=== PATIENT | female | born 1965 | race Caucasian/White ===

== ENCOUNTER 2017-04-06 15:55 | Emergency (ER) | payer OTHER ==
[2017-04-06 16:05] VITALS: BP 115/62
--- NOTE | 2017-04-06 16:23 | UC ---
Skin Complaint HPI - HPI Summary HPI Summary: Noticed thumb hurt on saturday. Progressively more painful and swollen and feeling infected. - History of Current Complaint Chief Complaint: UCGeneralIllness Time Seen by Provider: 04/06/17 16:14 Stated Complaint: RIGHT THUMB WOUND Hx Obtained From: Patient Hx Last Menstrual Period: 10 years ago. ?: No Onset/Duration: Sudden Onset, Lasting Days - 3, Worse Since - onset Timing: Constant Onset Severity: Mild Current Severity: Moderate Location: Hand (Right) - thumb on the radial side. Character: Swelling, Redness, Painful - with small open wound Aggravating Factor(s): Touch Alleviating Factor(s): Nothing Associated Signs & Symptoms: Positive: Chills, Tenderness. Negative: Weakness, Throat Tightening, Rash, Abdominal Pain Related History: Trauma - doesn't recall any trauma. - Allergy/Home Medications Allergies/Adverse Reactions: Allergies Allergy/AdvReac Type Severity Reaction Status Date / Time No Known Allergies Allergy Verified 04/06/17 15:59 Review of Systems Constitutional: Chills Is Patient Immunocompromised?: No All Other Systems Reviewed And Are Negative: Yes PMH/Surg Hx/FS Hx/Imm Hx Previously Healthy: Yes Other History Of: Negative For: HIV, Hepatitis B, Hepatitis C, Anticoagulant Therapy - Surgical History Surgical History: Yes Surgery Procedure, Year, and Place: TOE NAIL AVULSION. RIGHT SHOULDER ATHROSCOPY - Family History Known Family History: Positive: Diabetes Negative: Cardiac Disease, Hypertension - Social History Occupation: Employed Full-time Lives: Alone Alcohol Use: Occasionally Alcohol Amount: WINE WITH DINNER Substance Use Type: None Smoking Status (MU): Light Every Day Tobacco Smoker Type: Cigarettes Amount Used/How Often: 3-5 cig/day Length of Time of Smoking/Using Tobacco: 36 Years Have You Smoked in the Last Year: Yes Cessation Counseling: Patient Advised to Stop - Immunization History Most Recent Influenza Vaccination: no Most Recent Tetanus Shot: 02/18/16 Physical Exam Triage Information Reviewed: Yes Appearance: Well-Appearing, No Pain Distress, Well-Nourished Vital Signs: Initial Vital Signs Temp 97.6 F 04/06/17 15:59 Pulse 64 04/06/17 15:59 Resp 16 04/06/17 15:59 BP 115/62 04/06/17 15:59 Pulse Ox 100 04/06/17 15:59 Vital Signs Reviewed: Yes Eyes: Positive: Conjunctiva Clear Neck exam: Normal Respiratory Exam: Normal Cardiovascular Exam: Normal Musculoskeletal Exam: Normal Neurological Exam: Normal Psychological Exam: Normal Skin: Positive: Other - open wound, skin split distal right thumb, with tenderness and swelling. Course/Dx - Differential Diagnoses - Skin Complaint Differential Diagnoses: Abscess, Cellulitis, Foreign Body - Diagnoses Provider Diagnoses: Open wound right thumb. Cellulitis right thumb Discharge - Discharge Plan Condition: Stable Disposition: HOME Prescriptions: Cephalexin CAP* [Keflex 500 CAP*] 500 mg PO QID #28 cap Fluconazole [Fluconazole 150 mg tab] 150 mg PO ONCE #1 tab Patient Education Materials: Cephalexin (By mouth), Fluconazole (By mouth) Referrals: Mercy Duncan NP [Primary Care Provider] - Additional Instructions: Smoking Cessation Tricks. 1. Cut down by 1 cigarette per day every 2-3 days. Write the number of smokes for that day on the calendar. 2. Identify triggers to smoking: after meals, on the phone, in the car, with coffee, on breaks at work, etc. 3. Formulate a plan with a behavior to replace the smoking. Fireballs in the car , doodle pad on the phone, flavored creamer for the coffee, go for a walk after a meal or on break at work. 4. For stress smokes do deep breathing relaxation. Breath deep in through the nose hold the breath in for a few seconds then breath out slowly through the mouth.
== END 2017-04-06 16:35 | disposition home or self-care (01) ==
LOC: UCCORT 15:55
DX: S61.001A Unspecified open wound of right thumb without damage to nail, initial encounter (principal); L03.011 Cellulitis of right finger; X58.XXXA Exposure to other specified factors, initial encounter; Y93.9 Activity, unspecified; Y92.9 Unspecified place or not applicable; Y99.9 Unspecified external cause status; F17.210 Nicotine dependence, cigarettes, uncomplicated
CPT/HCPCS: 99212; G0463

== ENCOUNTER 2018-01-11 16:06 | Emergency (ER) | payer OTHER ==
[2018-01-11 16:55] VITALS: BP 112/67
--- NOTE | 2018-01-11 17:26 | UC ---
Ear Complaint HPI - HPI Summary HPI Summary: Pt c/o sudden onset of right ear pain pt states "I get swimmers ear all the time ". Pt denies swimming recently or frequently. - History of Current Complaint Chief Complaint: UCEar Stated Complaint: LEFT EAR CONCERN Time Seen by Provider: 01/11/18 17:12 Hx Obtained From: Patient Hx Last Menstrual Period: 10 years ago. ?: No Onset/Duration: Sudden Onset, Lasting Days, Still Present Severity Initially: Mild Severity Currently: Moderate Pain Intensity: 7 Alleviating Factors: Nothing Associated Signs/Symptoms: Positive: Swelling @ - left outer pinna - Allergies/Home Medications Allergies/Adverse Reactions: Allergies Allergy/AdvReac Type Severity Reaction Status Date / Time No Known Allergies Allergy Verified 01/11/18 16:56 PMH/Surg Hx/FS Hx/Imm Hx Previously Healthy: Yes Other History Of: Negative For: HIV, Hepatitis B, Hepatitis C, Anticoagulant Therapy - Surgical History Surgical History: Yes Surgery Procedure, Year, and Place: TOE NAIL AVULSION. RIGHT SHOULDER ATHROSCOPY - Family History Known Family History: Positive: Diabetes Negative: Cardiac Disease, Hypertension - Social History Occupation: Employed Full-time Lives: With Family Alcohol Use: Occasionally Alcohol Amount: WINE WITH DINNER Substance Use Type: None Smoking Status (MU): Light Every Day Tobacco Smoker Type: Cigarettes Amount Used/How Often: 3-5 cig/day Length of Time of Smoking/Using Tobacco: 36 Years Have You Smoked in the Last Year: Yes - Immunization History Most Recent Influenza Vaccination: no Most Recent Tetanus Shot: 02/18/16 Vaccination Up to Date: No Review of Systems Constitutional: Negative Skin: Negative Eyes: Negative ENT: Ear Ache - left Respiratory: Negative Cardiovascular: Negative Gastrointestinal: Negative Genitourinary: Negative Motor: Negative Neurovascular: Negative Musculoskeletal: Negative Neurological: Negative Psychological: Negative Is Patient Immunocompromised?: No All Other Systems Reviewed And Are Negative: Yes Physical Exam Triage Information Reviewed: Yes Appearance: Well-Appearing Vital Signs: Initial Vital Signs Temp 99.1 F 01/11/18 16:50 Pulse 76 01/11/18 16:50 Resp 16 01/11/18 16:50 BP 112/67 01/11/18 16:50 Pulse Ox 100 01/11/18 16:50 Vital Signs Reviewed: Yes Eye Exam: Normal ENT: Positive: Other - left outer ear canal erythematous, with purulent discharge. Dental Exam: Normal Neck exam: Normal Respiratory Exam: Normal Respiratory: Positive: No respiratory distress Musculoskeletal Exam: Normal Neurological Exam: Normal Psychological Exam: Normal Skin Exam: Normal Ear Complaint Course/Dx - Differential Dx/Diagnosis Differential Diagnosis/HQI/PQRI: Otitis Externa, Otitis Media Provider Diagnoses: otitis externa left Discharge - Sign-Out/Discharge Documenting (check all that apply): Patient Departure All imaging exams completed and their final reports reviewed: No Studies - Discharge Plan Condition: Stable Disposition: HOME Prescriptions: Neomyc/Polym/HC 1% OTIC SUSP* [Cortisporin Otic Susp 1%*] 2 drop LEFT EAR Q12H 7 Days #1 btl Patient Education Materials: Otitis Externa (ED) Referrals: Kandice Leblanc MD [Primary Care Provider] - If Needed - Billing Disposition and Condition Condition: STABLE Disposition: Home
== END 2018-01-11 17:38 | disposition home or self-care (01) ==
LOC: UCCORT 16:06
DX: H60.92 Unspecified otitis externa, left ear (principal); F17.210 Nicotine dependence, cigarettes, uncomplicated
CPT/HCPCS: 99212; G0463

== ENCOUNTER 2018-04-16 13:13 | Emergency (ER) | payer OTHER ==
--- OUTSIDE RECORDS SUMMARY | 2018-04-16 13:28 | XMS REPORT | Continuity of Care Document ---
:1965 External Reference #:[id number] Author Name Fransisca Harmon Care Team Providers Name Role Phone Kandice Leblanc M.D. Primary Care Physician Unavailable Payers Type Date Identification Numbers Payment Provider Subscriber Effective: Policy Number: [id number] Vikram Calhoun 2016 Group Name: [id number] [address] PayID: [id number] [place] [address] Advance Directives Description No Information Available Problems Date Description Provider Status Onset: 10/22/2017 Lateral epicondylitis Alonso Willingham MD Active Family History Date Family Member(s) Problem(s) Comments General Diabetes Social History Type Date Description Comments Sex Unknown Lives With Alone ETOH Use Rarely consumes alcohol Tobacco Use Start: Unknown Light tobacco smoker (10 or fewer cigarettes/day) Smoking Status Reviewed: 03/28/18 Light tobacco smoker (10 or fewer cigarettes/day) Exercise Type/Frequency Exercises regularly Allergies, Adverse Reactions, Alerts Description No Known Drug Allergies Medications Medication Date Status Form Strength Qnty SIG Indications Ordering Provider Amitriptyline 0 Active Tablets 25mg 1 by Unknown HCL 000 mouth every night at bedtime Cephalexin Hx Capsules 500mg 40caps Take 1 Alonso Russell - every 6 MD Tarsha hours as 018 needed Medications Administered in Office Medication Date Status Form Strength Qnty SIG Indications Ordering Provider Celestone 3 mg Administered Injection Kaiden M and 3mg 018 MD Julia Depomedrol Administered Injection Kaiden M 40MG 016 MD Julia Immunizations Description No Information Available Vital Signs Date Vital Result Comment 03/28/2018 8:24am Height 66 inches 5'6" Weight 126.00 lb BP Systolic 118 mmHg BP Diastolic 70 mmHg Pain Level 5 hip pain BMI (Body Mass Index) 20.3 kg/m2 02/03/2018 2:02pm Height 66 inches 5'6" Weight 125.00 lb BP Systolic 118 mmHg BP Diastolic 76 mmHg BMI (Body Mass Index) 20.2 kg/m2 10/22/2017 10:08am Height 66 inches 5'6" Weight 122.00 lb Heart Rate 95 /min BP Systolic Sitting 114 mmHg BP Diastolic Sitting 66 mmHg Respiratory Rate 20 /min Pain Level 7 BMI (Body Mass Index) 19.7 kg/m2 10/01/2017 8:08am Height 66 inches 5'6" Weight 120.00 lb Heart Rate 76 /min BP Systolic Sitting 120 mmHg BP Diastolic Sitting 76 mmHg Respiratory Rate 16 /min Pain Level 0 BMI (Body Mass Index) 19.4 kg/m2 09/03/2017 8:04am Height 66 inches 5'6" Weight 120.00 lb Heart Rate 84 /min BP Systolic Sitting 106 mmHg BP Diastolic Sitting 64 mmHg Respiratory Rate 18 /min Pain Level 0 BMI (Body Mass Index) 19.4 kg/m2 06/18/2017 8:05am Height 66 inches 5'6" Weight 123.00 lb Heart Rate 90 /min BP Systolic Sitting 108 mmHg BP Diastolic Sitting 60 mmHg Respiratory Rate 16 /min Pain Level 6 BMI (Body Mass Index) 19.9 kg/m2 04/09/2016 10:04am Height 66 inches 5'6" Weight 120.00 lb BP Systolic 126 mmHg BP Diastolic 72 mmHg BMI (Body Mass Index) 19.4 kg/m2 03/27/2016 8:17am Height 66 inches 5'6" Weight 120.00 lb Heart Rate 71 /min BP Systolic 100 mmHg BP Diastolic 62 mmHg BMI (Body Mass Index) 19.4 kg/m2 Results Description No Information Available Procedures Date Code Description Status 03/28/2018 Inject/Drain Joint/Bursa Major W/O US Completed 02/03/2018 20582 Rad Exam; Foot Comp Completed 06/18/2017 39491 Rad Exam; Fingers Completed 04/09/201627958 Inject/Drain Joint/Bursa Major W/O US Completed Encounters Type Date Location Provider Dx Diagnosis Office Visit 02/03/2018 [facility] Kaiden Dumont, S93.602A Unspecified sprain 2:00p [facility] of left foot, AT [place] initial encounter Office Visit 10/22/2017 Orthopedic Alonso Willingham M77.11 Lateral 9:30a [facility] epicondylitis, AT [place] right elbow Office Visit 10/01/2017 Orthopedic Lakia [id number] Cellulitis of right 8:00a [facility] finger AT [place] Office Visit 09/03/2017 Orthopedic Lakia [id number] Cellulitis of right 8:00a [facility] finger AT [place] Office Visit 06/18/2017 Orthopedic Lakia [id number] Cellulitis of right 8:00a [facility] finger AT [place] Office Visit 04/09/2016 [facility] Kaiden Dumont M70.61 Trochanteric 10:15a [facility] bursitis, right hip AT [place] Office Visit 03/27/2016 Orthopedic Lakia [id number] Cellulitis of 8:00a [facility] unspecified finger AT [place] L03.011 Cellulitis of right finger Plan of Treatment 03/28/2018 - Kaiden Dumont, [id number] Trochanteric bursitis, right hipFollow up: Follow up: As needed
--- OUTSIDE RECORDS SUMMARY | 2018-04-16 13:28 | XMS REPORT | Continuity of Care Document ---
:1965 External Reference #:[id number] Author Name Fransisca Harmon Care Team Providers Name Role Phone Kandice Leblacn M.D. Primary Care Physician Unavailable Payers Type Date Identification Numbers Payment Provider Subscriber Effective: Policy Number: [id number] Vikram Calhoun 2016 Group Name: [id number] [address] PayID: [id number] [place] [address] Advance Directives Description No Information Available Problems [...] Inject/Drain Joint/Bursa Major W/O US Completed 02/03/2018 01251 Rad Exam; Foot Comp Completed 06/18/2017 57442 Rad Exam; Fingers Completed 04/09/201695219 Inject/Drain Joint/Bursa Major W/O US Completed Encounters Type Date Location Provider Dx Diagnosis Office Visit 02/03/2018 [facility] Kaiden Dumont, S93.602A Unspecified sprain 2:00p [facility] of left foot, AT [place] initial encounter Office Visit 10/22/2017 Orthopedic Alonso Willingham M77.11 Lateral 9:30a [facility] epicondylitis, AT [place] right elbow Office Visit 10/01/2017 Orthopedic Lakia [id number] Cellulitis of right 8:00a [facility] finger AT [place] Office Visit 09/03/2017 Orthopedic Lakia [id number] Cellulitis of right 8:00a [facility] finger AT [place] Office Visit 06/18/2017 Orthopedic Lakia [id number] Cellulitis of right 8:00a [facility] finger AT [place] Office Visit 04/09/2016 Orthopedic Kaiden Dumont M70.61 Trochanteric 10:15a [facility] bursitis, right hip AT [place] Office Visit 03/27/2016 Orthopedic Lakia [id number] Cellulitis of 8:00a [facility] unspecified finger AT [place] L03.011 Cellulitis of right finger Plan of Treatment 03/28/2018 - Kaiden Dumont, [id number] Trochanteric bursitis, right hipFollow up: Follow up: As needed
[2018-04-16 14:29] VITALS: BP 99/64
--- NOTE | 2018-04-16 15:51 | UC ---
Ear Complaint HPI - HPI Summary HPI Summary: 53-year-old female presents with 2 week history of right ear discomfort. Associated with some mild nasal congestion, clear nasal drainage and mild sore throat. Denies fever, chills, ear drainage, hearing loss, tinnitus, dizziness, vertigo, cough, shortness of breath, chest pain, abdominal pain, nausea, or vomiting. - History of Current Complaint Chief Complaint: UCEar Stated Complaint: EAR PAIN Time Seen by Provider: 04/16/18 15:28 Hx Obtained From: Patient Hx Last Menstrual Period: 10 years ago. Pain Intensity: 5 - Allergies/Home Medications Allergies/Adverse Reactions: Allergies Allergy/AdvReac Type Severity Reaction Status Date / Time No Known Allergies Allergy Verified 04/16/18 14:25 PMH/Surg Hx/FS Hx/Imm Hx Previously Healthy: Yes - Denies significant PMH Psychological History: Depression Other History Of: Negative For: HIV, Hepatitis B, Hepatitis C, Anticoagulant Therapy - Surgical History Surgical History: Yes Surgery Procedure, Year, and Place: TOE NAIL AVULSION. RIGHT SHOULDER ATHROSCOPY - Family History Known Family History: Positive: Diabetes Negative: Cardiac Disease, Hypertension - Social History Occupation: Employed Part-time, Works From/At Home Lives: Alone Alcohol Use: Occasionally Alcohol Amount: WINE WITH DINNER Substance Use Type: None Smoking Status (MU): Light Every Day Tobacco Smoker Type: Cigarettes Amount Used/How Often: <1/4 PPD Length of Time of Smoking/Using Tobacco: Since Age 10 Have You Smoked in the Last Year: Yes - Immunization History Most Recent Influenza Vaccination: no Most Recent Tetanus Shot: 02/18/16 Vaccination Up to Date: No Review of Systems All Other Systems Reviewed And Are Negative: Yes Constitutional: Positive: Fever, Fatigue Eyes: Negative: Drainage, Eye Redness ENT: Positive: Ear Ache, Nasal Discharge, Sinus Congestion. Negative: Sinus Pain/Tenderness Respiratory: Negative: Shortness Of Breath, Cough Cardiovascular: Negative: Palpitations, Chest Pain Gastrointestinal: Negative: Abdominal Pain, Vomiting, Diarrhea, Nausea Is Patient Immunocompromised?: No Physical Exam - Summary Physical Exam Summary: GENERAL APPEARANCE: Well developed, well nourished, alert and cooperative, and appears to be in no acute distress. EYES: Conjunctiva clear. No drainage. Vision is grossly intact. EARS: External auditory canals and tympanic membranes clear, hearing grossly intact. NOSE: Mild nasal congestion with mucosal erythema and edema. THROAT: Oral cavity and pharynx normal. No inflammation, swelling, exudate, or lesions. Teeth and gingiva in good general condition. NECK: Neck supple, non-tender without lymphadenopathy. CARDIAC: Normal S1 and S2. No S3, S4 or murmurs. Rhythm is regular. There is no peripheral edema, cyanosis or pallor. Extremities are warm and well perfused. Capillary refill is less than 2 seconds. LUNGS: Clear to auscultation and percussion without rales, rhonchi, wheezing or diminished breath sounds. ABDOMEN: Positive bowel sounds. Soft, nondistended, nontender. No guarding or rebound. No masses or hepatosplenomegally. SKIN: Skin normal color, texture and turgor with no lesions or eruptions. Triage Information Reviewed: Yes Vital Signs: Initial Vital Signs Temp 98.3 F 04/16/18 14:24 Pulse 66 04/16/18 14:24 Resp 16 04/16/18 14:24 BP 99/64 04/16/18 14:24 Pulse Ox 100 04/16/18 14:24 Vital Signs Reviewed: Yes Ear Complaint Course/Dx - Course Course Of Treatment: 53-year-old female presents with 2 week history of right ear discomfort. Associated with some mild nasal congestion, clear nasal drainage and mild sore throat. Denies fever, chills, ear drainage, hearing loss , tinnitus, dizziness, vertigo, cough, shortness of breath, chest pain, abdominal pain, nausea, or vomiting. Afebrile, vital signs stable. Exam was unremarkable. Suspect some eustachian tube dysfunction. Will treat with fluticasone 2 sprays each nostril daily. Patient is to follow-up with a primary care provider in 7 days if symptoms persist. Warning symptoms were reviewed with the patient, Verbalizes understanding and agrees with plan of care. - Differential Dx/Diagnosis Differential Diagnosis/HQI/PQRI: Cerumen Impaction, Otitis Externa, Otitis Media , URI Provider Diagnosis: Eustachian tube dysfunction Discharge - Sign-Out/Discharge Documenting (check all that apply): Patient Departure All imaging exams completed and their final reports reviewed: No Studies - Discharge Plan Condition: Stable Disposition: HOME Prescriptions: Fluticasone NASAL SPRAY 50MCG* [Flonase NASAL SPRAY 50MCG*] 2 spray BOTH NARES DAILY #1 btl Patient Education Materials: Serous Otitis Media (ED) Referrals: Kandice Leblanc MD [Primary Care Provider] - 7 Days (If no imrpovement in symptoms. ) Additional Instructions: There is no evidence of an ear infection on your exam. I suspect year ear discomfort is from a condition called eustachian tube dysfunction. Start fluticasone (Flonase) 2 sprays each nostril once daily. He can try using an cxog-hbn-[id number] decongestant such as Sudafed according to directions to help with some of the nasal congestion. Take [id number]-thfyojm acetaminophen (Tylenol) or ibuprofen (Advil, Motrin) according to directions as needed for any pain. Follow-up with your primary care provider in 7 days if symptoms persist. Seek immediate medical attention if you develop fever greater than 100.5 F, have any drainage or bleeding from the ear, loss of hearing, or any worsening of symptoms. - Billing Disposition and Condition Condition: STABLE Disposition: Home - Attestation Statements Provider Attestation: I was available for consult. This patient was seen by the HESHAM. The patient was not presented to, seen by, or examined by me. -Antonia
== END 2018-04-16 16:03 | disposition home or self-care (01) ==
LOC: UCCORT 13:13
DX: H69.81 Other specified disorders of Eustachian tube, right ear (principal); F17.210 Nicotine dependence, cigarettes, uncomplicated
CPT/HCPCS: 99212; G0463

== ENCOUNTER 2018-09-23 08:35 | Emergency (ER) | payer OTHER ==
[2018-09-23 09:00] VITALS: BP 104/62
--- NOTE | 2018-09-23 09:23 | UC ---
Complaint Female HPI - HPI Summary HPI Summary: bilateral lower back pain and pressure x 4 days pain is 5 out of 10 / dull, constant, no radiation , nothing makes it better or worse + urinary frequency , nu dyuria / + lower abdominal pressure no fever, no chills, no flank pain - History Of Current Complaint Chief Complaint: UCGU Stated Complaint: LOW BACK PAIN Time Seen by Provider: 09/23/18 09:02 Hx Obtained From: Patient Hx Last Menstrual Period: 10 years ago. ?: No Onset/Duration: Gradual Onset, Lasting Days - 4, Still Present Timing: Constant Severity Initially: Moderate Severity Currently: Moderate Pain Intensity: 7 Character: Dull Aggravating Factor(s): Nothing Alleviating Factor(s): Nothing Associated Signs And Symptoms: Positive: Back Pain. Negative: Fever, Vaginal Bleeding/Discharge, Vaginal Discharge, Nausea, Vomiting(# Of Episodes =), Genital Swelling, Genital Blisters, Retained Foregin Body (Specify) - Allergies/Home Medications Allergies/Adverse Reactions: Allergies Allergy/AdvReac Type Severity Reaction Status Date / Time No Known Allergies Allergy Verified 04/16/18 14:25 PMH/Surg Hx/FS Hx/Imm Hx - Additional Past Medical History Additional PMH: UTI kidney infection x1 Other History Of: Negative For: HIV, Hepatitis B, Hepatitis C, Anticoagulant Therapy - Surgical History Surgical History: Yes Surgery Procedure, Year, and Place: TOE NAIL AVULSION. RIGHT SHOULDER ATHROSCOPY - Family History Known Family History: Positive: Diabetes Negative: Cardiac Disease, Hypertension - Social History Alcohol Use: Occasionally Alcohol Amount: WINE WITH DINNER Substance Use Type: None Smoking Status (MU): Light Every Day Tobacco Smoker Type: Cigarettes Amount Used/How Often: <1/4 PPD Length of Time of Smoking/Using Tobacco: Since Age 10 Have You Smoked in the Last Year: Yes - Immunization History Most Recent Influenza Vaccination: no Most Recent Tetanus Shot: 02/18/16 Vaccination Up to Date: No Review of Systems All Other Systems Reviewed And Are Negative: Yes Constitutional: Positive: Negative Skin: Positive: Negative Eyes: Positive: Negative ENT: Positive: Negative Respiratory: Positive: Negative Genitourinary: Positive: Frequency, Urgency. Negative: Dysuria, Vaginal/Penile Burning, Vaginal/Penile Itching Is Patient Immunocompromised?: No Physical Exam Triage Information Reviewed: Yes Appearance: Well-Appearing, No Pain Distress, Well-Nourished Vital Signs: Initial Vital Signs Temp 98.0 F 09/23/18 08:57 Pulse 66 09/23/18 08:57 Resp 16 09/23/18 08:57 BP 104/62 09/23/18 08:57 Pulse Ox 100 09/23/18 08:57 Vital Signs Reviewed: Yes Eye Exam: Normal Eyes: Positive: Conjunctiva Clear ENT: Positive: Normal ENT inspection, Hearing grossly normal, Pharynx normal Neck: Positive: Supple, Nontender, No Lymphadenopathy Respiratory: Positive: Chest non-tender, Lungs clear, Normal breath sounds Cardiovascular: Positive: RRR, No Murmur, Pulses Normal Abdomen Description: Positive: Nontender, Soft. Negative: CVA Tenderness (R), CVA Tenderness (L) Bowel Sounds: Positive: Present Skin Exam: Normal Complaint Female Dx - Differential Dx/Diagnosis Provider Diagnosis: UTI (urinary tract infection) Discharge - Sign-Out/Discharge Documenting (check all that apply): Patient Departure All imaging exams completed and their final reports reviewed: No Studies - Discharge Plan Condition: Stable Disposition: HOME Prescriptions: Fluconazole 150 MG TAB* [Diflucan 150 MG TAB*] 150 mg PO ED ONCE #1 tablet Sulfamethox/Trimethoprim DS* [Bactrim DS 800/160 TAB*] 1 tab PO BID #14 tab Patient Education Materials: Urinary Tract Infection in Women (ED) Referrals: Kandice Leblanc MD [Primary Care Provider] - 7 Days - Billing Disposition and Condition Condition: STABLE Disposition: Home
--- NOTE | 2018-09-25 07:24 | UC ---
- Progress Note Progress Note: Urine culture negative. Please call to advise that she can stop use of the antibiotic. If having persistent urine symptoms, advise follow up with Kandice Leblanc as directed by Dr. Vazquez. Course/Dx - Diagnoses Provider Diagnoses: UTI (urinary tract infection) Discharge - Sign-Out/Discharge Documenting (check all that apply): Patient Departure All imaging exams completed and their final reports reviewed: No Studies - Discharge Plan Condition: Stable Disposition: HOME Prescriptions: Fluconazole 150 MG TAB* [Diflucan 150 MG TAB*] 150 mg PO ED ONCE #1 tablet Sulfamethox/Trimethoprim DS* [Bactrim DS 800/160 TAB*] 1 tab PO BID #14 tab Patient Education Materials: Urinary Tract Infection in Women (ED) Referrals: Kandice Leblanc MD [Primary Care Provider] - 7 Days - Billing Disposition and Condition Condition: STABLE Disposition: Home
== END 2018-09-23 09:22 | disposition home or self-care (01) ==
LOC: UCCORT 08:35
DX: N39.0 Urinary tract infection, site not specified (principal); F17.210 Nicotine dependence, cigarettes, uncomplicated
CPT/HCPCS: 81003; 87086; 99212; G0463

== ENCOUNTER 2019-04-29 16:30 | Emergency (ER) | payer OTHER ==
[2019-04-29 17:05] VITALS: BP 116/56
--- NOTE | 2019-04-29 17:39 | UC ---
Knee Pain HPI - HPI Summary HPI Summary: Pt presents with c/o left knee pain, swelling, burning and feeling of a "boil" in left knee. Pt has new kitten that has scratched her left leg and then was exposed to sewage overflow at work . Pt has been taking cephalexin twice (that she was prescribed in 2017) a day for "several days" and states that pain and swelling has improved since taking antibiotic. Pt think s she has an infection in her knee. - History of Current Complaint Chief Complaint: [facility] Stated Complaint: LEFT KNEE COMPLAINT Time Seen by Provider: 04/29/19 17:17 Hx Obtained From: Patient Hx Last Menstrual Period: 10 years ago. ?: No Onset/Duration: Sudden Onset, Lasting Days, Still Present Severity Initially: Severe Severity Currently: Severe Pain Intensity: 10 Character: Sharp, Stiffness, Burning Aggravating Factor(s): Movement Alleviating Factor(s): Other - cephalexin, neosporin, and hydrogen peroxide. Associated Signs And Symptoms: Positive: Swelling Able to Bear Weight: Yes - Risk Factors Septic Arthritis Risk Factor: Negative Gout Risk Factor: Age ^ 38 - Allergies/Home Medications Allergies/Adverse Reactions: Allergies Allergy/AdvReac Type Severity Reaction Status Date / Time No Known Allergies Allergy Verified 04/29/19 17:05 PMH/Surg Hx/FS Hx/Imm Hx Previously Healthy: Yes Other History Of: Negative For: HIV, Hepatitis B, Hepatitis C, Anticoagulant Therapy - Surgical History Surgical History: Yes Surgery Procedure, Year, and Place: TOE NAIL AVULSION. RIGHT SHOULDER ATHROSCOPY - Family History Known Family History: Positive: Diabetes Negative: Cardiac Disease, Hypertension - Social History Occupation: Employed Full-time Lives: With Family Alcohol Use: Occasionally Alcohol Amount: WINE WITH DINNER Substance Use Type: None Smoking Status (MU): Light Every Day Tobacco Smoker Type: Cigarettes Amount Used/How Often: <1/4 PPD Length of Time of Smoking/Using Tobacco: Since Age 10 Have You Smoked in the Last Year: Yes - Immunization History Most Recent Influenza Vaccination: no Most Recent Tetanus Shot: 02/18/16 Vaccination Up to Date: No Review of Systems All Other Systems Reviewed And Are Negative: Yes Constitutional: Positive: Negative Skin: Positive: Negative Eyes: Positive: Negative ENT: Positive: Negative Respiratory: Positive: Negative Cardiovascular: Positive: Negative Gastrointestinal: Positive: Negative Genitourinary: Positive: Negative Motor: Positive: Negative Neurovascular: Positive: Negative Musculoskeletal: Positive: Arthralgia, Edema Neurological: Positive: Negative Psychological: Positive: Negative Is Patient Immunocompromised?: No Physical Exam Triage Information Reviewed: Yes Appearance: Well-Appearing Vital Signs: Initial Vital Signs Temp 99.0 F 04/29/19 16:59 Pulse 74 04/29/19 16:59 Resp 16 04/29/19 16:59 BP 116/56 04/29/19 16:59 Pulse Ox 100 04/29/19 16:59 Vital Signs Reviewed: Yes Eye Exam: Normal ENT: Positive: Hearing grossly normal Dental Exam: Normal Neck exam: Normal Respiratory Exam: Normal Respiratory: Positive: No respiratory distress Musculoskeletal: Positive: Other: - c/o pain in left knee with PE. no swelling, no erythema no obvious sign of infection. Neurological Exam: Normal Psychological Exam: Normal Skin Exam: Normal Diagnostics - Radiology No standard instances Radiology Interpretation Completed By: Radiologist - negative Knee Pain Course/Dx - Differential Dx/Diagnosis Differential Diagnosis/HQI/PQRI: Bursitis, Cellulitis, Puncture Wound Provider Diagnosis: Bursitis of left knee, Puncture wound Discharge ED - Sign-Out/Discharge Documenting (check all that apply): Patient Departure All imaging exams completed and their final reports reviewed: Yes - Discharge Plan Condition: Stable Disposition: HOME Prescriptions: Cephalexin CAP* [Keflex 500 CAP*] 500 mg PO Q12H #10 cap Fluconazole 150 MG TAB* [Diflucan 150 MG TAB*] 150 mg PO UC ONCE #2 tablet Patient Education Materials: Puncture Wound (ED), Knee Bursitis (ED) Referrals: Kandice Leblanc MD [Primary Care Provider] - If Needed - Billing Disposition and Condition Condition: STABLE Disposition: Home - Attestation Statements Provider Attestation: I was available for consult. This patient was seen by the [facility]. The patient was not presented to, seen by, or examined by me. -Antonia
== END 2019-04-29 18:04 | disposition home or self-care (01) ==
LOC: UCCORT 16:30
DX: S81.032A Puncture wound without foreign body, left knee, initial encounter (principal); M70.52 Other bursitis of knee, left knee; F17.210 Nicotine dependence, cigarettes, uncomplicated; W55.03XA Scratched by cat, initial encounter; Y92.9 Unspecified place or not applicable; Y99.0 Civilian activity done for income or pay
CPT/HCPCS: 99212; G0463